=== PATIENT | female | born 1995 | race Caucasian/White ===

== ENCOUNTER 2018-04-05 02:51 | Emergency (ER) | payer SELFPAY ==
[~2018-04-05] VITALS: Ht 162.6 cm; Wt 47.6 kg
--- NOTE | 2018-04-05 03:11 | NUR ---
DR VAIBHAV VICKERS MD AT BEDSIDE FOR MSE.
--- NOTE | 2018-04-05 03:33 | NUR ---
Patient discharged to home in stable conditon. Written and verbal after care instructions given. Patient verbalizes understanding of instructions. PT took all personal belongings.
[2018-04-05 03:44] VITALS: BP 118/72
== END 2018-04-05 03:44 | disposition home or self-care (01) ==
LOC: ER 02:58
DX: S00.411A Abrasion of right ear, initial encounter (principal); J32.9 Chronic sinusitis, unspecified; F12.10 Cannabis abuse, uncomplicated; X58.XXXA Exposure to other specified factors, initial encounter; Y93.89 Activity, other specified; Y92.89 Other specified places as the place of occurrence of the external cause; Y99.8 Other external cause status
CPT/HCPCS: A4663